=== PATIENT | female | born 1985 | race Asian ===

== ENCOUNTER 2018-03-25 14:10 | Emergency (ER) | payer MEDICAID ==
--- NOTE | 2018-03-25 14:41 | EDM.PDOC ---
ED HPI GENERAL MEDICAL PROBLEM - General Chief Complaint: Genitourinary Problem Stated Complaint: TROUBLE URINATING Time Seen by Provider: 03/25/18 14:36 Source of Information: Reports: Patient History Limitations: Reports: Language Barrier (History was obtained by a photonics engineering technician over the cell phone.) - History of Present Illness INITIAL COMMENTS - FREE TEXT/NARRATIVE: History suggests that she had no urinary tract symptoms as of yesterday. This morning she awoke with urgent need to void but is unable to do so. She has a constant feeling of urgency and need to void but again no ability to void. She had a urinary tract infection about 4 years ago. Last menstrual period was around March 12 she does not believe she is that she is sexually active without control. She states she is not having any problems with her bowel function. Abdominal surgery. No history of kidney stones. Denies any fever chills. She's never had a kidney infection. Onset: Today Onset Date: 03/25/18 Onset Time: 07:00 Duration: Hour(s): ('s had no feeling of need to void since 0700 hrs. with strong feelings of urgency but unable to void.) Location: Reports: Abdomen (Lower abdomen.) Quality: Reports: Ache, Other Severity: Moderate (Pressure) Improves with: Reports: None Worsens with: Reports: None Context: Reports: Other (Unable to void.). Denies: Activity, Exercise, Lifting , Sick Contact, Trauma Associated Symptoms: Reports: No Other Symptoms Bladder Pain Score (Numeric/FACES): 5 - Related Data Allergies Allergy/AdvReac Type Severity Reaction Status Date / Time No Known Allergies Allergy Verified 03/25/18 14:21 Home Meds: Home Meds Levofloxacin [Levaquin] 500 mg PO DAILY #7 tab 03/25/18 [Rx] Phenazopyridine [Pyridium] 100 mg PO Q8H #4 tablet 03/25/18 [Rx] Past Medical History Genitourinary History: Reports: UTI, Recurrent Social & Family History - Tobacco Use Smoking Status *Q: Never Smoker - Caffeine Use Caffeine Use: Reports: None - Recreational Drug Use Recreational Drug Use: No - Living Situation & Occupation Occupation: Student ED ROS GENERAL - Review of Systems Review Of Systems: See Below Constitutional: Denies: Fever, Chills, Malaise, Fatigue, Decreased Appetite, Weight Loss HEENT: Reports: No Symptoms Respiratory: Reports: No Symptoms Cardiovascular: Reports: No Symptoms Endocrine: Reports: No Symptoms GI/Abdominal: Reports: Abdominal Pain (Diffuse suprapubic pressure discomfort.) . Denies: Constipation, Diarrhea : Reports: Urgency, Urinary Retention (Has an urgency and need to void but unable to do so) Musculoskeletal: Reports: No Symptoms Skin: Reports: No Symptoms Neurological: Reports: No Symptoms Psychiatric: Reports: No Symptoms Hematologic/Lymphatic: Reports: No Symptoms Immunologic: Reports: No Symptoms ED EXAM, RENAL/ - Physical Exam Exam: See Below Exam Limited By: No Limitations General Appearance: Alert, WD/WN, Anxious, Moderate Distress Eye Exam: Bilateral Eye: Normal Inspection Throat/Mouth: Normal Inspection, Normal Lips, Normal Teeth, Normal Gums Respiratory/Chest: No Respiratory Distress, Lungs Clear, Normal Breath Sounds Cardiovascular: Normal Peripheral Pulses, Regular Rate, Rhythm, No Edema, No Gallop, No Murmur, No Rub GI/Abdominal: Normal Bowel Sounds (Moderately hyperactive bowel sounds throughout.), Soft, Non-Tender, No Organomegaly, Tender, Abnormal Bowel Sounds, Other (Tenderness suprapubically. The left hemicolon.) Back Exam: Normal Inspection, Full Range of Motion. No: CVA Tenderness (L), CVA Tenderness (R) Extremities: Normal Inspection, Normal Range of Motion, Non-Tender, No Pedal Edema Neurological: Alert, Oriented, CN II-XII Intact, Normal Cognition, Normal Gait Psychiatric: Normal Affect, Normal Mood Skin Exam: Warm, Dry, Intact, Normal Color, No Rash Course - Vital Signs Last Recorded V/S: Last Vital Signs Temp 37.4 C 03/25/18 14:16 Pulse 74 03/25/18 14:16 Resp 20 03/25/18 14:16 BP 106/63 03/25/18 14:16 Pulse Ox 97 03/25/18 14:16 - Orders/Labs/Meds Orders: Active Orders 24 hr Category Date Time Status CULTURE URINE [RM] Stat Lab 03/25/18 15:20 Received UA W/MICROSCOPIC [URIN] Stat Lab 03/25/18 15:24 Ordered Labs: Laboratory Tests 03/25/18 Range/Units 15:24 Urine Color [place] H (Yellow) Urine Appearance Slt cloudy H (Clear) Urine pH 7.0 (5.0-8.0) Ur Specific [place] 1.020 (1.005-1.030) Urine Protein 2+ H (Negative) Urine Glucose (UA) Negative (Negative) Urine Ketones 1+ H (Negative) Urine Occult Blood 3+ H (Negative) Urine Nitrite Positive H (Negative) Urine Bilirubin Negative (Negative) Urine Urobilinogen 0.2 (0.2-1.0) Ur Leukocyte Esterase 2+ H (Negative) Urine RBC >100 H (0-5) /hpf Urine WBC 5-10 H (0-5) /hpf Ur Epithelial Cells 0-5 (0-5) /hpf Urine Bacteria Moderate H (FEW) /hpf Urine Mucus Few (FEW) /hpf - Radiology Interpretation Free Text/Narrative:: 32-year-old female of [place] descent presents to the ED with complaints of urgency and need to void since she got up this morning but unable to void. I she has no history of dysuria urgency or frequency yesterday. This seemed to all developed over night. He said a urinary tract infection about 4 years ago. She states her bowel function is normal she's had no previous abdominal surgery. Last menstrual period was March 12. Plan it appears that she will need catheterization for urinalysis. SPECT infection but give consideration to possible obstructive the urethra with a stone. Clinically she is mildly constipated with palpable stool in the left hemicolon on exam. I will have a urine patency test done on the urinalysis we obtained by catheter. If this is normal she will have a KUB as well. - Re-Assessments/Exams Free Text/Narrative Re-Assessment/Exam: 03/25/18 16:25 Urinalysis is pink in color. Slightly cloudy. Has 2+ protein 1+ ketones and 3+ occult blood on the dip as well as positive nitrates. Leukocyte Estrace is 2+. RBCs greater than 100 wbc's 5-10 per hpf -- moderate bacteria appreciated. Plan she'll be placed on Levaquin 500 milligrams daily for the next 7 days and Pyridium 100 mg every 8 hours 4 doses. This was related to her via [place] plug overwrap machine tender. Also pictures were then taken of the discharge note so that the plug overwrap machine tender could translate them into [place] for her. Departure - Departure Time of Disposition: 16:26 Disposition: Home, Self-Care 01 Condition: Fair Clinical Impression: Hemorrhagic cystitis - Discharge Information Prescriptions: Levofloxacin [Levaquin] 500 mg PO DAILY #7 tab Phenazopyridine [Pyridium] 100 mg PO Q8H #4 tablet Instructions: Urinary Tract Infection, Adult, [id number] Referrals: PCP,None [Primary Care Provider] - Forms: ED Department Discharge Additional Instructions: Evaluation the emergent today in regards to acute onset of urinary tract infection with strong urgency and frequency with moderate amount of blood in the urine. We call this hemorrhagic cystitis. Urinalysis reveals plenty of white blood cells and many bacteria. Even is to be Pyridium 100 mg by mouth every 8 hours for the next day. Antibiotic is to be Levaquin 500 mg once daily for the next 7 days to clear up infection. Expect marked improvement in the next 36 hours. - My Orders Last 24 Hours: My Active Orders 03/25/18 15:20 CULTURE URINE [RM] Stat 03/25/18 15:24 UA W/MICROSCOPIC [URIN] Stat - Assessment/Plan Last 24 Hours: My Active Orders 03/25/18 15:20 CULTURE URINE [RM] Stat 03/25/18 15:24 UA W/MICROSCOPIC [URIN] Stat
== END 2018-03-25 16:40 | disposition home or self-care (01) ==
LOC: JD.ED 14:10
DX: N30.90 Cystitis, unspecified without hematuria (principal)
CPT/HCPCS: 81001; 87086; 87088; 87186; 99283